=== PATIENT | female | born 1980 | race Caucasian/White ===

== ENCOUNTER 2018-09-01 04:26 | Emergency (ER) | payer OTHER ==
[~2018-09-01] VITALS: Ht 160 cm; Wt 91.2 kg
[2018-09-01 04:31] VITALS: Ht 160 cm; Wt 91.2 kg
[2018-09-01 05:19] VITALS: BP 124/76
== END 2018-09-01 05:19 | disposition home or self-care (01) ==
LOC: ED 04:26
DX: O99.512 Diseases of the respiratory system complicating pregnancy, second trimester (principal); O26.892 Other specified pregnancy related conditions, second trimester; Z3A.26 26 weeks gestation of pregnancy; J40 Bronchitis, not specified as acute or chronic
CPT/HCPCS: J7613